=== PATIENT | male | born 1980 | race Caucasian/White ===

== ENCOUNTER 2016-12-05 14:33 | Emergency (ER) | payer MEDICARE, BC, OTHER, MEDICAID ==
[~2016-12-05] VITALS: Ht 185.4 cm; Wt 62.1 kg
[2016-12-05] MEDS ORDERED: LAMO200T OR (15:23)
[2016-12-05] MEDS ORDERED: QUET1TAB7 OR (15:23)
[2016-12-05] MEDS ORDERED: NIAC1TAB5 OR (15:23)
[2016-12-05] MEDS ORDERED: ALBU83IN (15:23)
[2016-12-05] MEDS ORDERED: CYAN1000VL (15:23)
[2016-12-05] MEDS ORDERED: GEMF600T OR (15:23)
[2016-12-05] MEDS ORDERED: PARO20TA3 (15:23)
[2016-12-05] MEDS ORDERED: OMEP40CA2 OR (15:23)
[2016-12-05] MEDS ORDERED: DIVA500T9 OR (15:23)
[2016-12-05 16:14] LABS: BASO % 0.4 % (0.0-1.0); EOS # 0.3 K/mm3 (0.0-0.50); EOS % 4.1 % (0.0-3.0); LARGE UNSTAINED CELL # 0.1 K/mm3 (0.0-0.4); LARGE UNSTAINED CELL % 0.9 % (0.0-4.0); LYMPH # 1.5 K/mm3 (1.5-4.5); MEAN CORPUSCULAR HEMOGLOBIN 34.7 pg (27.0-33.0); MEAN CORPUSCULAR HGB CONC 35.6 g/dl (32.0-36.5); MEAN CORPUSCULAR VOLUME 97.5 fl (80.0-96.0); MONO # 0.3 K/mm3 (0.0-0.8); MONO % 4.6 % (0.0-5.0); NEUTROPHILS # 4.5 K/mm3 (1.8-7.7); PLATELET COUNT, AUTOMATED 231 k/mm3 (150-450); RED CELL DISTRIBUTION WIDTH 13.3 % (11.5-14.5); WHITE BLOOD COUNT 6.6 K/mm3 (4.0-10.0)
--- NOTE | 2016-12-05 16:27 | REP ---
Chest one-view HISTORY: Cough Comparison: 03/24/2010 The lungs are clear. The heart is normal in size. The pulmonary vasculature is normal in appearance. Impression: No acute disease. Signed by Luis Callaway MD 12/05/2016 04:18 P
[2016-12-05 16:43] LABS: ANION GAP 9 MEQ/L (8-16); BLOOD UREA NITROGEN 18 MG/DL (7-18); CALCIUM LEVEL 9.4 MG/DL (8.5-10.1); CARBON DIOXIDE LEVEL 25 MEQ/L (21-32); CHLORIDE LEVEL 105 MEQ/L (98-107); CREATININE FOR GFR 0.66 MG/DL (0.70-1.30); GLOMERULAR FILTRATION RATE > 60.0 (>60); GLUCOSE, FASTING 111 MG/DL (70-105); POTASSIUM SERUM 4.1 MEQ/L (3.5-5.1); SODIUM LEVEL 139 MEQ/L (136-145)
[2016-12-05 17:41] VITALS: BP 136/72
== END 2016-12-05 18:19 | disposition home or self-care (01) ==
LOC: M ED 14:53
DX: G40.909 Epilepsy, unspecified, not intractable, without status epilepticus (principal); J45.909 Unspecified asthma, uncomplicated; D64.9 Anemia, unspecified; F79 Unspecified intellectual disabilities